=== PATIENT | female | born 1995 | race Caucasian/White ===

== ENCOUNTER 2016-12-16 11:15 | Observation (INO) | payer OTHER ==
[~2016-12-16] VITALS: Ht 170.2 cm; Wt 71.7 kg
[2016-12-16 11:15] VITALS: BP 113/80
[2016-12-18] MEDS ORDERED: PREN1TAB80 PO (01:01)
== END 2016-12-16 14:15 | disposition home or self-care (01) ==
LOC: 4S 11:15
PROVIDERS: ADMIT Obstetrics & Gynecology; ATTEND Obstetrics & Gynecology
DX: O99.283 Endocrine, nutritional and metabolic diseases complicating pregnancy, third trimester (principal); E03.9 Hypothyroidism, unspecified; O48.0 Post-term pregnancy; Z3A.40 40 weeks gestation of pregnancy
CPT/HCPCS: 59025; G0378

== ENCOUNTER 2016-12-18 01:06 | Inpatient (IN) | payer OTHER ==
[~2016-12-18] VITALS: Ht 168 cm; Wt 72.6 kg
[~2016-12-18 01:06] MED LIST: PREN1TAB80 PO
[2016-12-18] MEDS ORDERED: OXYTOCIN 30 UNITS/LACT RINGERS 500 ML IV ONE (01:27)
[2016-12-18] MEDS ORDERED: RINGERS SOLUTION,LACTATED 1,000 ML IV PRN (01:27)
[2016-12-18] MEDS ORDERED: CITRIC ACID/SODIUM CITRATE 30 ML SOLUTION UDCUP PO PRN (01:30)
[2016-12-18] MEDS ORDERED: METOCLOPRAMIDE HCL 5 MG/ML 2 ML VIAL IVP PRN (01:30)
[2016-12-18 01:58] LABS: BASOPHILS % (AUTO) 0.4 % (0.0-2.0); EOSINOPHILS % (AUTO) 1.1 % (1.0-6.0); HEMATOCRIT 31.9 % (36-46); HEMOGLOBIN 10.9 g/dL (12.0-16.0); LYMPHOCYTES % (AUTO) 24.7 % (22.0-44.0); MEAN CORPUSCULAR HEMOGLOBIN 29.4 pg (26.0-34.0); MEAN CORPUSCULAR HGB CONC 34.1 G/dL (31.0-37.0); MEAN CORPUSCULAR VOLUME 86 fL (80-100); MONOCYTES # (AUTO) 0.5 K/uL (0.1-1.0); MONOCYTES % (AUTO) 5.9 % (2.0-9.0); NEUTROPHILS # (AUTO) 5.4 K/uL (1.8-7.7); NEUTROPHILS % (AUTO) 67.9 % (40.0-70.0); RED BLOOD CELL COUNT(AUTO) 3.69 MIL/uL (4.00-5.20); RED CELL DISTRIBUTION WIDTH 14.3 % (11.5-14.5)
[2016-12-18] MEDS: RINGERS SOLUTION,LACTATED 1,000 ML IV SCH ×2 (02:03→03:36)
[2016-12-18] MEDS: FentaNYL CITRATE-PF 100 MCG/2 ML VIAL IVP PRN ×2 (02:18→02:55)
[2016-12-18] MEDS ORDERED: OXYTOCIN 30 UNITS/LACT RINGERS 500 ML IV PRN (03:30)
[2016-12-18] MEDS ORDERED: FentaNYL/BUPIV 0.125%/NS/PF 200 ML ED ONE (03:44)
[2016-12-18] MEDS ORDERED: BUPIVACAINE HCL/PF 0.25% 30 ML VIAL ONE (03:45)
[2016-12-18] MEDS ORDERED: FentaNYL/BUPIV 0.125%/NS/PF 200 ML ED PRN (04:25)
[2016-12-18] MEDS ORDERED: ONDANSETRON HCL 4 MG/2 ML VIAL IVP PRN (04:30)
[2016-12-18] MEDS ORDERED: DiphenhydrAMINE HCL 50 MG/ML VIAL IVP PRN (04:30)
[2016-12-18] MEDS ORDERED: CeFAZolin 2 GM/DEXTROSE 50 ML IV ONE ×2 (12:55→13:15)
[2016-12-18] MEDS ORDERED: LANOLIN 7 GM OINTMENT TP PRN (14:30)
[2016-12-18] MEDS ORDERED: GLYCERIN/WITCH HAZEL LEAF 40 PADS JAR TP PRN (14:30)
[2016-12-18] MEDS ORDERED: BENZOCAINE 20%/MENTHOL 56 GM SPRAY CANISTER TP PRN (14:30)
[2016-12-18] MEDS: IBUPROFEN 800 MG TABLET PO SCH ×2 (14:30→20:27)
[2016-12-18] MEDS ORDERED: ACETAMINOPHEN/CODEINE 300-30 MG TABLET PO PRN (14:30)
[2016-12-18] MEDS: MAGNESIUM HYDROXIDE SUSPENSION 30 ML UDCUP PO SCH (20:27)
[2016-12-18] MEDS: ACETAMINOPHEN/CODEINE 300-30 MG TABLET PO PRN (20:28)
[2016-12-19] MEDS: ACETAMINOPHEN/CODEINE 300-30 MG TABLET PO PRN (01:28)
[2016-12-19] MEDS: IBUPROFEN 800 MG TABLET PO SCH ×2 (02:38→08:43)
[2016-12-19] MEDS: MAGNESIUM HYDROXIDE SUSPENSION 30 ML UDCUP PO SCH (08:42)
[2016-12-19] MEDS ORDERED: DSS100 PO (12:30)
[2016-12-19] MEDS ORDERED: IBUP-2070 PO (12:30)
[2016-12-19] MEDS ORDERED: FERR-89 PO (12:31)
== END 2016-12-19 13:05 | disposition home or self-care (01) | DRG 775 ==
LOC: OBSVTOIN 01:06 → 4S 01:06
PROVIDERS: ADMIT Obstetrics & Gynecology; ATTEND Obstetrics & Gynecology
PROC: 10E0XZZ Delivery of Products of Conception, External Approach (ICD-10-PCS; principal; 2016-12-18)
PROC: 10907ZC Drainage of Amniotic Fluid, Therapeutic from Products of Conception, Via Natural or Artificial Opening (ICD-10-PCS; 2016-12-18)
PROC: 3E0S3CZ (ICD-10-PCS; 2016-12-18)
PROC: 00HU33Z Insertion of Infusion Device into Spinal Canal, Percutaneous Approach (ICD-10-PCS; 2016-12-18)
DX: O69.81X0 Labor and delivery complicated by cord around neck, without compression, not applicable or unspecified (principal); Z37.0 Single live birth; Z3A.40 40 weeks gestation of pregnancy
CPT/HCPCS: J0690; J2590; J3010; J3490; J7120